=== PATIENT | male | born 1990 | race Two or more races ===

== ENCOUNTER 2019-08-07 19:15 | Emergency (ER) | payer OTHER ==
--- NOTE | 2019-08-07 20:28 | ED ---
Upper Extremity Pain - HPI Summary HPI Summary: Patient complains of being unable to bend his right elbow without pain since waking up yesterday morning. States numbness and tingling in fingers. Denies trauma. Denies prior history of same. Denies fever, cough, sore throat, CP, SOB, N/V city, abdominal pain, change in urine, change in BM. Denies medical history. Patient came from urgent care to the ED for further evaluation. Negative x-ray of right elbow at urgent care. - History of Current Complaint Chief Complaint: EDExtremityUpper Stated Complaint: CANT BEND ARM PER PT Time Seen by Provider: 08/07/19 19:49 Hx Obtained From: Patient Mechanism Of Injury: Unknown Onset/Duration: Started Hours Ago Timing: Constant Severity Initially: Moderate Severity Currently: Moderate Pain Location: Elbow Character: Dull, Aching, Throbbing Aggravating Factor(s): Movement Alleviating Factor(s): Nothing Associated Signs & Symptoms: Positive: Negative - Allergies/Home Medications Allergies/Adverse Reactions: Allergies Allergy/AdvReac Type Severity Reaction Status Date / Time No Known Allergies Allergy Verified 08/12/19 08:07 PMH/Surg Hx/FS Hx/Imm Hx Endocrine/Hematology History: Denies: Hx Anticoagulant Therapy Cardiovascular History: Denies: Hx Pacemaker/ICD History: Denies: Hx Dialysis Sensory History: Denies: Hx Eye Prosthesis Opthamlomology History: Denies: Hx Legally Blind EENT History: Denies: Hx Deafness Neurological History: Denies: Hx Dementia Infectious Disease History: No Infectious Disease History: Denies: Traveled Outside the [place] in Last 30 Days - Social History Alcohol Use: None Substance Use Type: Reports: None Smoking Status (MU): Never Smoked Tobacco Review of Systems Constitutional: Negative Eyes: Negative ENT: Negative Cardiovascular: Negative Respiratory: Negative Gastrointestinal: Negative Genitourinary: Negative Musculoskeletal: Other Skin: Negative Neurological: Negative Psychological: Normal All Other Systems Reviewed And Are Negative: Yes Physical Exam - Summary Physical Exam Summary: Patient able to fully extend right upper extremity, has around 90 of flexion of right elbow with pain progressing quickly at about 90. Patient refuses to flex elbow further. No swelling, erythema, ecchymosis, extra warmth, deformity noted to right elbow. Mild pain with palpation of muscles and tendons surrounding elbow. PMS intact distally. 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 Triage Information Reviewed: Yes Vital Signs On Initial Exam: Initial Vitals Temp Pulse Resp BP Pulse Ox 98.8 F 80 18 128/81 98 08/07/19 19:17 08/07/19 19:17 08/07/19 19:17 08/07/19 19:17 08/07/19 19:17 Vital Signs Reviewed: Yes Appearance: Positive: Well-Appearing Skin: Positive: Warm Head/Face: Positive: Normal Head/Face Inspection Eyes: Positive: Normal Neck: Positive: Supple Respiratory/Lung Sounds: Positive: Clear to Auscultation Cardiovascular: Positive: Normal Abdomen Description: Positive: Nontender Musculoskeletal: Positive: Normal Neurological: Positive: Normal Psychiatric: Positive: Normal AVPU Assessment: Alert - Nancy Coma Scale Best Eye Response: 4 - Spontaneous Best Motor Response: 6 - Obeys Commands Best Verbal Response: 5 - Oriented Coma Scale Total: 15 Diagnostics - Vital Signs Vital Signs Temp Pulse Resp BP Pulse Ox 08/07/19 19:17 98.8 F 80 18 128/81 98 - Laboratory Lab Statement: Any lab studies that have been ordered have been reviewed, and results considered in the medical decision making process. Course/Dx - Course Course Of Treatment: Patient complains of being unable to bend his right elbow without pain since waking up yesterday morning. States numbness and tingling in fingers. Denies trauma. Denies prior history of same. Denies fever, cough , sore throat, CP, SOB, N/V city, abdominal pain, change in urine, change in BM. Denies medical history. Patient came from urgent care to the ED for further evaluation. Negative x-ray of right elbow at urgent care. Vital signs within normal limits. Physical exam consistent with tendinitis. - Diagnoses Provider Diagnoses: Tendinitis of right elbow Discharge ED - Sign-Out/Discharge Documenting (check all that apply): Patient Departure Patient Received Moderate/Deep Sedation with Procedure: No - Discharge Plan Condition: Stable Disposition: HOME Patient Education Materials: Tennis Elbow (ED), Tendinitis (ED) Referrals: No Primary Care Phys,NOPCP [Primary Care Provider] - Additional Instructions: Take ibuprofen 600 mg every 6 hours for 3 days. Wear tennis elbow brace on right elbow, especially at night. Rest right arm as much as possible. If symptoms persist follow-up with your orthopedics DrLeonora or orthopedics Dr. Bearden for further evaluation. Return to the ED if you're right elbow becomes red, swollen with decreased range of motion. - Billing Disposition and Condition Condition: STABLE Disposition: Home - Attestation Statements Provider Attestation: I was available for consultation for this patient. I did not evaluate the patient, or participate in any medical decision making or disposition decisions unless I am specifically named in the chart as having consulted on the patient. If I have consulted on the patient, please see my own ED note on the patient encounter. Linda Lema MD
[2019-08-07 21:20] VITALS: BP 127/64
== END 2019-08-07 20:41 | disposition home or self-care (01) ==
LOC: EDSEX → MERGE 19:15 → ED 19:15
DX: M77.9 Enthesopathy, unspecified (principal)
CPT/HCPCS: 99281